=== PATIENT | male | born 1975 | race Caucasian/White ===

== ENCOUNTER → 2019-09-16 | Outpatient (CLI) | payer BC | END | disposition home or self-care (01) | LOC: LAB.O 08:33 | PROVIDERS: ATTEND Internal Medicine Gastroenterology | DX: K59.1 Functional diarrhea (principal) ==

== ENCOUNTER → 2020-03-01 | Outpatient (CLI) | payer BC | LOC: LAB.O 09:13 | DX: K50.00 Crohn's disease of small intestine without complications (principal) ==

== ENCOUNTER → 2020-04-10 | Outpatient (CLI) | payer BC | LOC: LAB.O 11:25 | DX: K50.00 Crohn's disease of small intestine without complications (principal) ==